=== PATIENT | male | born 1945 | race Caucasian/White ===

== ENCOUNTER → 2018-01-28 09:45 | Outpatient (CLI) | payer MEDICARE, SELFPAY | PROVIDERS: Visit Provider Urology | DX: R82.99 Other abnormal findings in urine (principal) | CPT/HCPCS: 87086; 87088 ==

== ENCOUNTER → 2020-08-04 12:25 | Outpatient (CLI) | payer MEDICARE, OTHER, SELFPAY | PROVIDERS: PCP Internal Medicine; Referring Provider Urology; Visit Provider Urology | DX: N30.01 Acute cystitis with hematuria (principal) | CPT/HCPCS: 87086; 87088; 87186 ==

== ENCOUNTER → 2021-03-23 11:36 | Outpatient (CLI) | payer MEDICARE, SELFPAY | PROVIDERS: PCP Internal Medicine; Referring Provider Nurse Practitioner Adult Health; Visit Provider Nurse Practitioner Adult Health | DX: R35.0 Frequency of micturition (principal) | CPT/HCPCS: 36415; 84153; 87077; 87086; 87088; 87186 ==

== ENCOUNTER → 2021-03-23 16:21 | Outpatient (CLI) | payer MEDICARE, SELFPAY ==
[2021-03-23 17:48] LABS: PSA,Total- Diagnostic 0.48 ng/mL (0.0-4.0)
== END ==
PROVIDERS: PCP Internal Medicine; Visit Provider Nurse Practitioner Adult Health
DX: N40.3 Nodular prostate with lower urinary tract symptoms (principal); R35.0 Frequency of micturition
CPT/HCPCS: 36415; 84153

== ENCOUNTER → 2021-04-18 16:33 | Outpatient (CLI) | payer MEDICARE, SELFPAY ==
--- NOTE | 2021-04-18 14:02 | BLA_PTH ---
PATIENT: MAI HERRMANN I LOC: [facility] U#:[id number] AGE/SX: 79/M ROOM: RE04/18/[address]: Dr. Waldemar Sanz MD : 1945 BED: DIS: SPEC #: [id number] RECD: 04/18/21 16:00 STATUS: JASPER MONTILLAHodan #: [id number] BERTO: 04/18/21 14:[address]: Waldemar Sanz DEPT: SURGICAL PATHOLOGY RECD BY: Patel Lynn ENTERED: 04/19/21 08:10 SP TYPE: BLADDER BX OTHR DR: Dr. Maria Del Carmen Lenz MD Tissues: Urinary bladder, NOS Procedures: Surgery Specimen Level IV HEADER OPERATION: Bladder biopsy PRE-OP DIAGNOSIS: D30.3 TISSUE SUBMITTED: Bladder biopsy MICROSCOPIC DIAGNOSIS Bladder, biopsy: Fragments of urothelial mucosa with marked chronic inflammation. Reactive epithelial changes. See comment. CHLOE:fabby 04/20/2021 COMMENT The specimen also shows cautery artifact. Clinical correlation and appropriate follow up are necessary. MICROSCOPIC DESCRIPTION Slides are reviewed. GROSS DESCRIPTION Received is one container labeled with the patient's name and not further designated. The specimen consists of two minute fragments of mcgee soft tissue that in aggregate measure 0.1 x 0.1 x <0.1 cm. The specimen is totally submitted in one cassette. / SJ:fabby 04/19/21 TC:3 CPT: 91029
== END ==
PROVIDERS: PCP Internal Medicine; Referring Provider Urology; Visit Provider Urology
DX: D30.3 Benign neoplasm of bladder (principal)
CPT/HCPCS: 88305

== ENCOUNTER 2021-11-17 07:07 | Day surgery (SDC) | payer MEDICARE, SELFPAY ==
[2021-11-17] VITALS (7 sets, daily range): BP systolic 110–142; BP diastolic 64–78; PULSE 76–94; RESP 12–18; TEMP 36.2–36.6; O2SAT 89–100; BMI 21.5
--- NOTE | 2021-11-17 | HYD_PTH ---
PATIENT: MAI HERRMAN[place] [facility] [place][id number] AGE/SX: 76/M ROOM: RE11/17/[address]: Dr. Waldemar Sanz MD : 1945 BED: DIS: 11/17/2021 SPEC #: [id number] RECD: 11/17/21 13:19 STATUS: JASPER EPHRAIM #: [id number] BERTO: 11/17/21 00:[address]: Waldemar Sanz DEPT: SURGICAL PATHOLOGY RECD BY: Haja Bear ENTERED: 11/20/21 08:16 SP TYPE: HYDROCELE OTHR DR: Dr. Maria Del Carmen Lenz MD Tissues: HYDROCELE Procedures: Surgery Specimen Level II HEADER OPERATION: Direct visual internal urethrotomy, hydrocelectomy PRE-OP DIAGNOSIS: Urethral stricture, hydrocele TISSUE SUBMITTED: Right hydrocele MICROSCOPIC DIAGNOSIS Right hydrocele, hydrocelectomy: Consistent with hydrocele with mild chronic inflammation. AM:fabby 11/21/2021 MICROSCOPIC DESCRIPTION Slides are reviewed. GROSS DESCRIPTION Received in fixative is one container labeled with the patient's name and designated right hydrocele. The specimen consists of two pieces of mcgee soft tissue measuring in aggregate 3.5 x 2 x 0.7 cm. No mass lesion is identified. Both pieces are sectioned and the entire specimen is submitted in two cassettes. / SJ:fabby 11/20/2021 TC:3 CPT: 53869
[2021-11-17] MEDS: Lactated Ringers 1,000 ML 15 ML IV (07:39)
[2021-11-17] MEDS: Cefazolin 2 GM in 0.9% Normal Saline 100 ML IV (09:51)
--- NOTE | 2021-11-17 10:00 | PCM.HP.STD ---
HPI - General HPI Narrative MAI HERRMANN, is a 76 M who presents for Dilation of urethra and DVIU and hydrocele repair [facility] Medical History (Updated 11/10/21 @ 12:31 by Marianela Rae) Anemia Arthritis Cancer Chronic cough Glaucoma History of leukemia History of skin cancer Hodgkin disease Hx of corrected hypospadias Legally blind Macular degeneration Non-smoker Shortness of breath on exertion Wears glasses Home Medications travoprost [Travatan Z] 1 drp RIGHT EYE QHS 10/01/14 [History Last Taken Unknown] Epaointvh-Rdgjzildt-Nibvedo C 1 ea PO DAILY 11/01/14 [History Last Taken Unknown] multivitamin with folic acid [Thera] 1 tab PO DAILY 11/01/14 [History Last Taken Unknown] vitamin B complex 1 ea PO DAILY 11/01/14 [History Last Taken Unknown] azithromycin 250 mg PO DAILY 11/10/21 [History Last Taken Unknown] cholecalciferol (vitamin D3) [Vitamin D3] 50 mcg PO DAILY 11/10/21 [History Last Taken Unknown] d-mannose 500 mg PO DAILY 11/10/21 [History Last Taken Unknown] dorzolamide-timolol 1 drp RIGHT EYE BID 11/10/21 [History Last Taken 11/17/21] niacin (inositol niacinate) [Niacin Flush Free] 1 cap PO DAILY 11/10/21 [History Last Taken Unknown] prednisolone acetate [Pred Forte] 1 drp RIGHT EYE DAILY 11/10/21 [History Last Taken Unknown] vit C-vit R-ylqztx-Re-Cu-Zn 2 cap PO DAILY 11/10/21 [History Last Taken Unknown] zinc utk-pnaeek-zzv palm-gnsg 1 cap PO DAILY 11/10/21 [History Last Taken Unknown] ciprofloxacin HCl [Cipro] 500 mg PO BID #10 tab 11/17/21 [Rx Last Taken Unknown] oxycodone-acetaminophen 1 tab PO Q6H PRN 7 Days #14 tab 11/17/21 [Rx Last Taken Unknown] Allergy/AdvReac Type Severity Reaction Status Date / Time cheese Allergy Itching Verified 11/17/21 07:34 chocolate flavor Allergy Itching Verified 11/17/21 07:34 potato Allergy Itching Verified 11/17/21 07:34 Surgical History (Updated 11/17/21 @ 09:[address] Waldemar Sanz MD) Hx of cornea transplant Hx of inguinal hernia repair Hx of nasal septoplasty Hx of surgical procedure Hx of transurethral resection of prostate Social History Smoking Status: Never smoker Vital Signs Vital Signs Vital Signs: 11/17/21 07:35 Temperature 97.1 F L Temperature Source Temporal Pulse Rate 94 Respiratory Rate 16 Respiratory Pattern Normal Blood Pressure 142/78 H Blood Pressure Mean 99 Blood Pressure Source Monitor Blood Pressure Position Semi-Fowlers Blood Pressure Location Right Arm Pulse Ox 97 Oxygen Delivery Method Room Air Weight Weight: 62.414 kg Body Mass Index (BMI) 21.5
--- NOTE | 2021-11-17 10:01 | PCM.DC ---
Discharge Instructions Diet Discharge Diet: No restrictions Activity Discharge Activity: Return to Normal Activity and May Not Drive (while taking narcotic pain medications.) Dressing / Incision Call your doctor if you observe: Fever of 101 or Higher Follow Up Care Please Follow Up With: Waldemar Sanz MD When: Call [phone] for an appointment Test Results: Test results from this visit will be discussed in further detail at your follow-up appointment, if applicable. Discharge Plan Admission Primary Reason for Your Visit: Hydrocelectomy, and DVIU Attending Provider: Waldemar Sanz Primary Care Provider: Maria Del Carmen Lenz Instructions Patient Instructions: Hydrocele Surgery (Hydrocelectomy), ED King Catheter, Care Discharge Orders/Prescriptions Prescriptions: New ciprofloxacin HCl [Cipro] 500 mg tablet 500 mg PO BID Qty: 10 RF: 0 oxycodone-acetaminophen 5-325 mg tablet 1 tab PO Q6H PRN (Reason: pain) 7 Days Qty: 14 RF: 0 Continued travoprost [Travatan Z] 1 DROP bottle 1 drp Right Eye QHS RF: 0 vitamin B complex 1 EACH capsule 1 ea PO DAILY RF: 0 multivitamin with folic acid [Thera] 1 TABLET tablet 1 tab PO DAILY RF: 0 Kvqepjhdp-Szmbwefwq-Tbutuyr C 1 EACH tablet 1 ea PO DAILY RF: 0 azithromycin 250 mg Tablet 250 mg PO DAILY RF: 0 niacin (inositol niacinate) [Niacin Flush Free] 400 mg niacin (500 mg) Capsule 1 cap PO DAILY RF: 0 prednisolone acetate [Pred Forte] 1 % drops,suspension 1 drp RIGHT EYE DAILY RF: 0 dorzolamide-timolol 22.3-6.8 mg/mL drops 1 drp RIGHT EYE BID RF: 0 vit C-vit O-ydvyhz-Me-Cu-Zn 60-30-6 mg-unit-mg Capsule 2 cap PO DAILY RF: 0 cholecalciferol (vitamin D3) [Vitamin D3] 50 mcg (2,000 unit) Tablet 50 mcg PO DAILY RF: 0 zinc pmi-vdosej-whs palm-gnsg 15-2-160 mg Capsule 1 cap PO DAILY RF: 0 d-mannose 500 mg Capsule 500 mg PO DAILY RF: 0 Referrals / Follow Up: Maria Del Carmen Lenz MD [Primary Care Provider] - Waldemar Sanz MD [STAFF PHYSICIAN] - Disposition Disposition (needs filled in before D/C Order can be placed): Home, Self Care
[2021-11-17] MEDS: Bupivacaine Mpf 0.5% 30 ML VIAL (10:07)
--- NOTE | 2021-11-17 10:44 | OP.PCM_ITS ---
Report of Operation Date of Procedure: 11/17/21 Pre-Operative Diagnosis: Right large hydrocele and urethral stricture anterior Post-Operative Diagnosis: Same Surgery/Procedure Performed:: Right hydrocelectomy, direct vision internal urethrotomy and placement of Huang catheter Description of Surgical Findings:: Patient presents for surgical removal of a symptomatic hydrocele. We discussed in the preoperative setting what to expect with the surgery. We discussed the expected results with surgery. He understands with removal of a hydrocele there is a risk of bleeding, infection, hematoma formation, abscess formation, recurrence of hydrocele, pain and swelling. He will be given postoperative antibiotics and anti-inflammatories he was given instructions for no heavy lifting or heavy activity. And to wear tight supportive underwear and ice to scrotum as necessary for swelling. After discussion with the patient and review of the risk and benefits were to proceed with a hydrocelectomy. Patient was taken back to the operating room, he was placed supine on the operating room table, a timeout procedure was performed and the patient was identified in the side of the surgery was marked and confirmed by the operating room staff. Patient then underwent general anesthesia by the anesthesiology team. Once general anesthesia was secured then to the scrotum penis area was shaved prepped and draped in usual sterile fashion. On inspection he could see palpate the hydrocele that was quite large on the right side. The hydrocele was about 5centimeters in size. I then made a small incision over the hydrocele sac infiltrated the skin with Marcaine. I then made a small incision over the hydrocele sac dissected down to the hydrocele sac itself and then infiltrated the sac with lidocaine. The hydrocele sac was then grabbed with Allis clamps on both sides and drained and then through the small incision the testicle and hydrocele sac was delivered. Then using electrocautery and pinpoint dissection I removed the hydrocele sac from the testicle. We then used electrocautery and pinpoint electrocautery and suture ligation to control and get perfect hemostasis to stop all bleeding from around the testicle. The testicle itself was identified the vas deferens of the testicle the spermatic cord. There is no injury to the spermatic cord during the dissection section. After the hydrocele sac was excised I then created a dartos space in the scrotum and the testicle was placed back in the ductal space sac. We made sure that there was good hemostasis. We then closed over the testicle in 2 layers closing the dartos layer and then the subcutaneous layer and then the skin layer with subcuticular stitches. Then using a DVIU set the meatus was gently dilated from 18-20 [place]. Then went into the urethra with a urethrotome and identified the pinpoint stricture in the mid urethra. A 0.038 Glidewire was used to passed through the stricture to ensure access to the bladder and the prostate. The Glidewire was secured to the drapes. Then using a cold knife the knife was deployed from the urethrotome and then at the 12 o'clock position the scar tissue was cut until the stricture was cut open completely. The stricture was in the anterior urethra and was pin point. I was then able to navigate the scope through the scar tissue without any resistance. Then after this I was able to navigate past the dense scar tissue into the bulbar urethra through the sphincter and passed the prostate. Inside the bladder the bladder and prostate was inspected the trigone was normal the left and right ureter orifice normal the prostate was normal. I then pulled out the urethrotome and then a well-lubricated 18 [place] catheter was advanced into the bladder with clear return of urine. 10 cc were put into the balloon and the catheter was secured to the leg bag. All sponges and needles were accounted for patient's anesthetic was reversed and he was taken back to the PACU in stable condition and with tight supportive scrotal support. Surgeon: Waldemar Sanz Type of Anesthesia: General Drains: 20 fr huang Admit VTE Documentation VTE Present on Admission: No VTE Mechan Device Prophylaxis: SCD's VTE Pharm Prophylaxis ordered?: No
[2021-11-17] MEDS: Acetaminophen 325 MG Tablet 650 MG PO (12:11)
== END 2021-11-17 13:06 | disposition home or self-care (01) ==
LOC: SDC 07:08 → AC 07:09
PROVIDERS: PCP Internal Medicine; Referring Provider Urology; Visit Provider Urology
PROC: 0T7D8ZZ Dilation of Urethra, Via Natural or Artificial Opening Endoscopic (ICD-10-PCS; CPT 52276; principal; 2021-11-17 08:40)
DX: N40.1 Benign prostatic hyperplasia with lower urinary tract symptoms (principal); N36.8 Other specified disorders of urethra; R35.0 Frequency of micturition; N43.0 Encysted hydrocele; N35.013 Post-traumatic anterior urethral stricture; R05.3 Chronic cough; Z85.6 Personal history of leukemia; Z85.828 Personal history of other malignant neoplasm of skin; H54.8 Legal blindness, as defined in USA
CPT/HCPCS: 55899; 53000; 00920; 88302; J7120; C1769; J2405

== ENCOUNTER → 2024-01-15 | Outpatient (CLI) | payer MEDICARE, SELFPAY | END | disposition home or self-care (01) | PROVIDERS: PCP Internal Medicine; Referring Provider Otolaryngology Otolaryngology/Facial Plastic Surgery; Visit Provider Otolaryngology Otolaryngology/Facial Plastic Surgery | DX: J32.9 Chronic sinusitis, unspecified (principal) | CPT/HCPCS: 87070; 87077; 87186; 87205 ==

== ENCOUNTER → 2024-06-22 | Outpatient (CLI) | payer MEDICARE, SELFPAY | END | disposition home or self-care (01) | PROVIDERS: PCP Internal Medicine; Referring Provider Psychiatry & Neurology Neurology; Visit Provider Psychiatry & Neurology Neurology | DX: I63.9 Cerebral infarction, unspecified (principal) | CPT/HCPCS: 95819 ==